=== PATIENT | female | born 1965 | race Caucasian/White ===

== ENCOUNTER 2017-06-20 12:03 | Day surgery (SDC) | payer MEDICARE ==
[~2017-06-20 12:03] MED LIST: Acetaminophen TAB* 325 MG PO ONE; Buffered Lidocaine 0.9% SYRIN* 5 ML/SYR SYRINGE INTRADERM ONE; Ondansetron INJ* 2 MG/ML VIAL IV ONE
[2017-06-20] MEDS ORDERED: Buffered Lidocaine 0.9% SYRIN* 5 ML/SYR SYRINGE ONE (12:17)
[2017-06-20] MEDS ORDERED: Ondansetron INJ* 2 MG/ML VIAL ONE (12:17)
[2017-06-20] MEDS ORDERED: Acetaminophen TAB* 325 MG ONE (12:17)
[2017-06-20] MEDS ORDERED: Clindamycin 900 MG IVPREMIX(* 900 MG/50 ML SDV IV ONE (12:17)
[2017-06-20] MEDS ORDERED: Propofol* 10 MG/ML 20 ML BTL IV PUSH ONE (13:16)
[2017-06-20] MEDS ORDERED: fentaNYL* 50 MCG/ML 2 ML VIAL (100 MCG VIAL) ONE ×3 (13:16→15:51)
[2017-06-20] MEDS ORDERED: Midazolam* 1 MG/ML 2 ML VIAL (2 MG) ONE ×2 (13:16→14:51)
[2017-06-20] MEDS ORDERED: Lidocaine 2% PF * 5 ML VIAL ONE (13:16)
[2017-06-20] MEDS ORDERED: Ketorolac INJ* 30 MG/ML 1 ML VIAL ONE ×2 (13:29→14:58)
[2017-06-20] MEDS: fentaNYL* 50 MCG/ML 2 ML VIAL (100 MCG VIAL) IV SLOW PU PRN ×2 (13:39→13:57)
[2017-06-20] MEDS ORDERED: Lidocaine 1% INJ* 10 MG/ML 30 ML SDV ONE (14:01)
[2017-06-20] MEDS ORDERED: KETAMINE HCL* 50 MG/ML 10 ML VIAL ONE (14:30)
[2017-06-20] MEDS ORDERED: Dexamethasone IV* 4 MG/ML 1 ML (4 MG) ONE (14:58)
[2017-06-20] MEDS ORDERED: EPHEDrine (Pressors)* 50 MG/ML VIAL ONE (15:02)
[2017-06-20] MEDS ORDERED: Ibuprofen TAB* 600 MG PO PRN (15:20)
[2017-06-20] MEDS ORDERED: DiMENhydriNATE IV* 50 MG/ML VIAL IV PUSH PRN (15:20)
[2017-06-20] MEDS ORDERED: HYDROcodone/ACETAMIN 5-325 MG* 1 TAB PO PRN (15:20)
[2017-06-20] MEDS ORDERED: oxyCODONE/Acetamin 5/325 MG* TAB PO PRN (15:43)
[2017-06-20] MEDS ORDERED: oxyCODONE/Acetamin 5/325 MG* TAB ONE (15:51)
[2017-06-20] MEDS: fentaNYL* 50 MCG/ML 2 ML VIAL (100 MCG VIAL) IV PRN ×2 (15:53→16:45)
--- NOTE | 2017-06-20 15:55 | RAD ---
INDICATION: chest port placement COMPARISONS: None relevant TECHNIQUE: Fluoroscopy was provided for a vascular access procedure. Total fluoroscopy time is: 18.4 seconds FINDINGS: Spot images demonstrate a right-sided chest port from an internal jugular vein approach with the tip overlying the cavoatrial junction. IMPRESSION: FLUOROSCOPY WAS PROVIDED FOR A VASCULAR ACCESS PROCEDURE CPT II Codes: 6045F
--- NOTE | 2017-06-20 16:21 | RAD ---
HISTORY: Status post chest port placement COMPARISONS: February 09, 2015 VIEWS:1: Single frontal portable view of the chest at 3:57 PM FINDINGS: LINES AND TUBES: A right-sided chest port is noted from a right internal carotid approach with the tip overlying the cavoatrial junction CARDIOMEDIASTINAL SILHOUETTE: The cardiomediastinal silhouette is normal for portable technique. PLEURA: The costophrenic angles are sharp. No pleural abnormalities are noted. There is no appreciable pneumothorax. LUNG PARENCHYMA: The lungs are clear. ABDOMEN: The upper abdomen is clear. There is no subphrenic gas. BONES AND SOFT TISSUES: There is a scoliotic curvature of the spine. IMPRESSION: LINES AND TUBES ABOVE. NO ACTIVE CARDIOPULMONARY DISEASE.
[2017-06-20] MEDS ORDERED: HYDROcodone/ACETAMIN 5-325 MG* 1 TAB ONE (16:49)
[2017-06-20 17:28] VITALS: BP 114/76
--- NOTE | 2017-06-28 07:51 | OP ---
CC: Chapin Koehler NP; Jerardo Chavez MD, [employer], [place] * DATE OF OPERATION: 06/20/17 - [facility] DATE OF : 63 SURGEON: Osito Morris MD PRE-OP DIAGNOSIS: Systemic lupus erythematosus. POST-OP DIAGNOSIS: Systemic lupus erythematosus. OPERATIVE PROCEDURE: PowerPort placement, right internal jugular. DRAINS: None. COMPLICATIONS: None. COUNTS: Instrument, needle, and sponge counts were correct. DESCRIPTION OF PROCEDURE: The patient was brought to the operating room and placed on the table supine. Intravenous sedation administered. Her neck and chest were prepped and draped in usual sterile fashion. Time-out was performed. Local anesthetic was infiltrated initially for a left subclavian approach; however, left subclavian vein was unable to be cannulated and therefore, using ultrasound guidance the left internal jugular vein was able to be accessed and the J-wire was placed. The wire however, would not pass into the superior vena cava and instead preferentially is passed toward the axillary vein. This despite numerous times to manipulate the guide wire and including re-accessing the vein. Ultimately, the procedures were aborted on the left side, direct pressure was applied to achieve hemostasis. The decision was made to access the right internal jugular vein again under ultrasound guidance and this was performed without difficulty. The guidewire was then placed into the superior vena cava under fluoroscopic guidance and then additional anesthetic was infiltrated into the right upper chest and a subcutaneous pocket was created with cautery. The counter incision was made at the guidewire insertion site and an 8-[place] PowerPort catheter was tunnelled through the site. A peel-away sheath and dilator were advanced over the guidewire into the superior vena cava under fluoroscopic guidance. The guidewire and dilator were removed and then the catheter was advanced into the superior vena cavo-atrial junction. The catheter was cut to the appropriate length, connected to the PowerPort, which was positioned into the pocket and secured with a single 2-0 Surgipro suture. The port was accessed, it didier and flushed easily, and ultimately was flushed with heparinized saline. The incision were closed with 3-0 Polysorb to approximate the subcutaneous tissues and then 4-0 Monocryl was used in subcuticular fashion to approximate the skin edges. Steri-Strips were applied with gauze dressings and Tegaderm. The patient tolerated the procedure well. She was awakened and transferred to the recovery room in stable condition. [id number]/[facility] #: [id number] POLA
== END 2017-06-20 17:15 | disposition home or self-care (01) ==
LOC: OR 12:03
PROVIDERS: ATTEND Surgery
DX: M32.9 Systemic lupus erythematosus, unspecified (principal); E03.9 Hypothyroidism, unspecified; I73.00 Raynaud's syndrome without gangrene; G43.909 Migraine, unspecified, not intractable, without status migrainosus; Z87.891 Personal history of nicotine dependence; Z88.0 Allergy status to penicillin; Z85.3 Personal history of malignant neoplasm of breast; Z88.8 Allergy status to other drugs, medicaments and biological substances
CPT/HCPCS: 71010; 76001; A9270-GY; C1788; J1100; J1642; J1885; J2001; J2250; J2405; J2704; J3010

== ENCOUNTER 2017-08-26 13:13 | Day surgery (SDC) | payer MEDICARE ==
[~2017-08-26 13:13] MED LIST changes: -Acetaminophen TAB* 325 MG PO ONE; +DiMENhydriNATE IV* 50 MG/ML VIAL IV PUSH PRN; +Famotidine IV* 10 MG/ML 2 ML (20 mg) IV ONE; -Ondansetron INJ* 2 MG/ML VIAL IV ONE; +PROCHLORPERAZINE INJ 5 MG/ML 2 ML VIAL IV PRN; +Scopolamine 1.5 mg* PATCH TRANSDERM SCH; +Scopolomine PATCH Remove* 1 NOTE MISC PATCH OFF SCH; +fentaNYL* 50 MCG/ML 2 ML VIAL (100 MCG VIAL) IV PRN; +oxyCODONE/Acetamin 5/325 MG* TAB PO PRN
[2017-08-26] MEDS ORDERED: Buffered Lidocaine 0.9% SYRIN* 5 ML/SYR SYRINGE ONE (13:29)
[2017-08-26] MEDS ORDERED: Famotidine IV* 10 MG/ML 2 ML (20 mg) ONE (13:29)
[2017-08-26] MEDS ORDERED: Scopolamine 1.5 mg* PATCH ONE (14:20)
[2017-08-26] MEDS ORDERED: SUMAtriptan TAB* 50 MG PO ONE (15:00)
[2017-08-26] MEDS ORDERED: fentaNYL* 50 MCG/ML 2 ML VIAL (100 MCG VIAL) ONE (15:47)
[2017-08-26] MEDS ORDERED: KETAMINE HCL* 50 MG/ML 10 ML VIAL ONE (15:47)
[2017-08-26] MEDS ORDERED: Midazolam* 1 MG/ML 10 ML VIAL (10 MG) ONE (15:48)
[2017-08-26] MEDS ORDERED: Metoprolol Tartrate IV* 1 MG/ML 5 ML VIAL ONE (15:52)
[2017-08-26] MEDS ORDERED: Lidocaine 1% INJ* 10 MG/ML 30 ML SDV ONE (16:14)
[2017-08-26] MEDS ORDERED: Propofol* 10 MG/ML 20 ML BTL IV PUSH ONE (16:40)
[2017-08-26] MEDS ORDERED: Lidocaine 2% PF * 5 ML VIAL ONE (16:40)
[2017-08-26] MEDS ORDERED: oxyCODONE/Acetamin 5/325 MG* TAB PO PRN (16:52)
[2017-08-26] MEDS ORDERED: oxyCODONE/Acetamin 5/325 MG* TAB ONE (17:12)
[2017-08-26] MEDS ORDERED: Morphine INJ* 4 MG/ML 1 ML CARPUJECT ONE (17:26)
[2017-08-26] MEDS: Morphine INJ* 2 MG/ML 1 ML CARPUJECT IV PRN ×2 (17:27→17:43)
[2017-08-26 18:38] VITALS: BP 127/86
--- NOTE | 2017-08-27 05:54 | OP ---
CC: Chapin Koehler NP* OPERATIVE REPORT: DATE OF OPERATION: 08/26/17 - [facility] DATE OF : 63 SURGEON: Dr. Morris [employer] SERV[employer]ER: None. ANESTHESIOLOGIST: Dr. Manzo. ANESTHESIA: Local MAC. PRE-OP DIAGNOSIS: Pain due to PowerPort. POST-OP DIAGNOSIS: Pain due to PowerPort. OPERATIVE PROCEDURE: Removal of PowerPort. ESTIMATED BLOOD LOSS: Minimal. IV FLUIDS: Crystalloid. SPECIMENS: None. DRAINS: None. COMPLICATIONS: None. DESCRIPTION OF PROCEDURE: The patient was brought to the operating room and placed on the table supine. The patient was administered intravenous sedation and she was prepped and draped in a sterile fashion. Time-out was performed. Local anesthetic was infiltrated into the skin and soft tissue in the right upper chest where the PowerPort was visible. The skin was incised through the previous scar and the capsule of the port was entered. The suture securing the port was cut and removed. The port was then withdrawn from the pocket and the catheter was withdrawn and direct pressure was applied to the IJ site. Hemostasis was achieved. The wound was then closed with 4-0 Monocryl in a subcuticular fashion to approximate the skin edges. Steri-Strips were applied with Tegaderm dressing. The patient tolerated the procedure well and was awakened and transferred to Recovery in stable condition. [id number]/[facility] #: [id number] MTDD
== END 2017-08-26 18:15 | disposition home or self-care (01) ==
LOC: OR 13:13
PROVIDERS: ATTEND Surgery
DX: T82.848A Pain due to vascular prosthetic devices, implants and grafts, initial encounter (principal); Y71.2 Prosthetic and other implants, materials and accessory cardiovascular devices associated with adverse incidents; E03.9 Hypothyroidism, unspecified; M32.9 Systemic lupus erythematosus, unspecified; G43.909 Migraine, unspecified, not intractable, without status migrainosus; Z85.3 Personal history of malignant neoplasm of breast; J45.909 Unspecified asthma, uncomplicated; Z88.8 Allergy status to other drugs, medicaments and biological substances; Z87.891 Personal history of nicotine dependence; Z88.3 Allergy status to other anti-infective agents; Z88.0 Allergy status to penicillin
CPT/HCPCS: A9270-GY; J2001; J2250; J2270; J2704; J3010